=== PATIENT | female | born 1935 | race Caucasian/White ===

== ENCOUNTER 2022-01-16 19:31 | Emergency (ER) | payer OTHER, SELFPAY ==
[2022-01-16] VITALS (18 sets, daily range): BP systolic 135–239; BP diastolic 91–140; PULSE 87–101; RESP 12–19; TEMP 35.8; O2SAT 91–99; BMI 24.4
--- NOTE | 2022-01-16 19:45 | CRLHL7_ITS ---
For Patients: As a result of the Century Cures Act, medical imaging exams and procedure reports are released immediately into your electronic medical record. You may view this report before your referring provider. If you have questions, please contact your health care provider. DATE: 01/16/2022. CLINICAL HISTORY: Slurred speech. TECHNIQUE: Standard helical CT image acquisition through the head and neck was performed after intravenous contrast bolus enhancement. Multiplanar reconstructed images were performed and interpreted. COMPARISON: None available. FINDINGS: The origins of the great vessels from the aortic arch are patent. The origins of the right and left vertebral arteries are patent. The common carotid arteries are patent. Mild (<50%) atherosclerotic stenoses of the bilateral proximal ICAs by NASCET criteria. The more distal cervical segments of the internal carotid arteries are patent. The cervical segments of the vertebral arteries are patent. No intracranial proximal large vessel occlusion. Intracranial atherosclerotic disease with mild to moderate stenoses of the intracranial vertebral arteries and mild stenosis of the supraclinoid left ICA. No evidence of cerebral aneurysm or findings to suggest an arteriovenous shunting lesion. IMPRESSION: 1. No intracranial proximal large vessel occlusion. 2. Atherosclerotic disease involving the anterior and posterior circulation, as above. 3. Mild (<50%) atherosclerotic stenoses of the bilateral proximal ICAs by NASCET criteria. Please note that all CT scans at this facility use dose modulation, iterative reconstruction, and/or weight-based dosing when appropriate to reduce radiation dose to as low as reasonably achievable. Dictated by Dale Jurado MD @ 01/17/2022 7:27:13 PM (Electronically Signed)
--- NOTE | 2022-01-16 19:45 | CRLHL7_ITS ---
For Patients: As a result of the Century Cures Act, medical imaging exams and procedure reports are released immediately into your electronic medical record. You may view this report before your referring provider. If you have questions, please contact your health care provider. INDICATION: Slurred speech. TECHNIQUE: CT of the head without contrast. Coronal and sagittal reformats are included. COMPARISON: None. FINDINGS: No CT evidence of acute cortical infarct. No loss of santana white matter differentiation. No hyperdense vessels to suggest intracranial thrombus. No acute intracranial hemorrhage. No mass effect or midline shift. No hydrocephalus or extra-axial collections. Patchy and hypoattenuation throughout the supratentorial white matter, typical for microvascular ischemic change. Moderate generalized parenchymal volume loss. Thick vascular calcifications carotid siphons, left carotid terminus/proximal MCA intradural vertebral arteries. No acute osseous abnormalities. Bilateral partial mastoid effusions. Small left maxillary sinus retention cyst. Normal soft tissues. IMPRESSION: IMPRESSION:1. No CT evidence of acute cortical infarct. No acute intracranial hemorrhage. No other acute intracranial findings. Please note that all CT scans at this facility use dose modulation, iterative reconstruction, and/or weight-based dosing when appropriate to reduce radiation dose to as low as reasonably achievable. Dictated by Thom Barnard MD @ 01/16/2022 8:06:10 PM (Electronically Signed)
--- NOTE | 2022-01-16 19:50 | ED_ITS ---
HPI - General Adult General Chief complaint: Altered Mental Status <Maylin Moon MD - Last Filed: 01/16/22 21:53> Stated complaint: headache, nausea, vomiting, htn <Maylin Moon MD - Last Filed: 01/16/22 21:53> Time Seen by Provider: 01/16/22 19:45 <Maylin Moon MD - Last Filed: 01/16/22 21:53> Source: patient and family <Maylin Moon MD - Last Filed: 01/16/22 21:53> Mode of arrival: EMS <Maylin Moon MD - Last Filed: 01/16/22 21:53> Limitations: other (Hearing impaired) <Maylin Moon MD - Last Filed: 01/16/22 21:53> History of Present Illness HPI narrative: 86-year-old female coming in today for headache that started at 4:00 p.m. and recurrent vomiting. She has vomited so much that she is now only dry heaving. Her daughter states she has vomited every 5 minutes nonstop. No diarrhea that she is aware of. According the EMS she was mentating normally however when she arrived in the ER she started having slurred speech and then jumbled speech with word salad. Daughter is very concerned because this is not her mother's baseline. States that mother has no difficulty with speech. Patient and daughter both denies recent illness. Patient denies any changes in her hearing or her vision. She does not have her hearing aids in right now so it is difficult to communicate with her but she does hear if you yell loud enough. Past medical history significant for bilateral hearing loss, depression, osteoporosis, COPD, vitamin-D deficiency, nephrectomy 1968. She is not on any blood thinners. She takes escitalopram, albuterol inhaler, vaginal estradiol, Fosamax, Spiriva. <Maylin Moon MD - Last Filed: 01/16/22 21:53> Related Data Home medications: Home Medications Medication Instructions Recorded Confirmed albuterol sulfate 90 mcg/actuation inhalation 01/16/22 aerosol inhaler alendronate 70 mg tablet mg PO 01/16/22 escitalopram oxalate 20 mg tablet mg 01/16/22 <Maylin Moon MD - Last Filed: 01/16/22 21:53> Allergies/adverse reactions: Allergies Allergy/AdvReac Type Severity Reaction Status Date / Time Fish Containing Products Allergy Verified 01/16/22 19:51 Sulfa (Sulfonamide Allergy Verified 01/16/22 19:51 Antibiotics) codine Allergy Uncoded 01/16/22 19:51 <Maylin Moon MD - Last Filed: 01/16/22 21:53> Review of Systems Status of ROS: Reports: 10 or more systems reviewed and unremarkable except as noted in History and below <Maylin Moon MD - Last Filed: 01/16/22 21:53> [facility] Medical History: Medical History (Updated 01/16/22 @ 22:17 by Wander Montiel MD) COPD (chronic obstructive pulmonary disease) <Maylin Moon MD - Last Filed: 01/16/22 21:53> Surgical History: Surgical History (Updated 01/16/22 @ 19:53 by Sheyla Ron RN) History of appendectomy History of nephrectomy <Maylin Moon MD - Last Filed: 01/16/22 21:53> Social History: Social History Smoking Status: Former smoker What tobacco products do you use: cigarettes Smoking quit date/years: >15 years ago Do you use any of these nicotine containing products: None Second hand tobacco smoke exposure: No How often do you have a drink containing alcohol: never How often do you have six or more drinks on one occasion: Never AUDIT-C Alcohol total score: 0 Non-prescribed substance use: denies use service: No <Maylin Moon MD - Last Filed: 01/16/22 21:53> Exam Narrative: Exam Narrative: Elevated blood pressure. Well-nourished well-developed patient in no acute distress. Awake. She cannot tell me the month or year. Daughter states that her birthday is tomorrow said she has been very aware of that so she should no both of those things. At 1st she answers questions appropriately but 2 minutes into the interview lawrence cruz's speech becomes acutely slurred and she has jumbled speech and word salad. She is very hard of hearing but follows commands and is cooperative. HEENT: Normocephalic atraumatic. The left pupil is 1-2 mm smaller than the right. Extraocular muscles are intact. Conjunctivae are moist without any icterus noted. Moist mucous membranes. Posterior pharynx is normal. Neck is soft without any lymphadenopathy or thyromegaly. No masses are appreciated. Cardiovascular: Heart is regular rate and rhythm S1 and S2 are present without any murmurs. Lungs: Decreased breath sounds bilaterally, no wheezes rhonchi or rales are appreciated. Patient takes deep breaths without any discomfort. Abdomen: Soft and nontender nondistended with normal bowel sounds. No guarding or rebound. No masses or organomegaly appreciated. Extremities: Bilateral lower extremities are without edema. Normal DP and PT pulses. Skin: Well perfused without any obvious rashes. Strength is 5/5 of the upper and lower extremities. Reflexes are 2+ and symmetric at the knees. Cranial nerves 3-12 are normal. [id number] is accurate but slow. There is no nystagmus either horizontally or vertically. <Maylin Moon MD - Last Filed: 01/16/22 21:53> Const: Vital Signs, click to edit/add: Vital Signs - 24 hr 01/16/22 19:36 Temperature 96.4 F L Pulse Rate [Right Pulse Oximeter] 87 Respiratory Rate 18 Blood Pressure [Le ft Upper Arm] 239/135 H Pulse Oximetry 98 Oxygen Delivery Me thod Room Air <Maylin Moon MD - Last Filed: 01/16/22 21:53> Vital Signs, click to edit/add: Vital Signs - 24 hr 01/16/22 19:36 Temperature 96.4 F L Pulse Rate [Right Pulse Oximeter] 87 Respiratory Rate 18 Blood Pressure [Le ft Upper Arm] 239/135 H Pulse Oximetry 98 Oxygen Delivery Me thod Room Air <Wander Montiel MD - Last Filed: 01/16/22 22:17> Course Course Hospital Course: Head CT unremarkable, CTA showing stenosis of multiple vessels but no occlusion. Speak to Dr. Wellington, neurology at a line now who recommended MRI and admission. Unfortunately we [facility] [place], [facility], [facility], [facility]-there are no beds available anywhere, including here. Therefore patient will be kept in the ER for observation at this time and pending her night we will get her situated for an outpatient workup including MRI and echocardiogram. Given her headache we did go ahead and treated with IV morphine and given her significantly elevated blood pressure we did treat with IV hydralazine. We also did dose of aspirin and loading dose of Plavix. Went to re-examine the patient and her daughter stated that she had another episode of jumbled speech that lasted a couple of minutes and then resolved. I did speak to Dr. Wellington again to tell her about this episode, she stated that given that the episode comes and goes that we cannot get an MRI at this time to confirm, she would does not recommend lytics. Does recommend we check lipids, A1c. And set her up for an outpatient MRI and echocardiogram. <Maylin Moon MD - Last Filed: 01/16/22 21:53> Reevaluation(s) Reevaluation #1: Patient accepted in sign-out from Dr. Moon. Briefly, 86-year-old female with history of hypertension who initially presented with headache, nausea, and vomiting starting about 4:00 p.m.. Subsequently while in the emergency department at approximately 745, patient developed slurred speech which progressed to finding and jumbled speech. This lasted approximately 20 minutes and resolved. No other focal neurologic deficits during this time. She is found to be significantly hypertensive, hydralazine ordered and patient was given morphine IV to help with her headache as well. Approximately 9:30 p.m., daughter reported the patient had another episode of slurred and garbled speech which is now resolved <Wander Montiel MD - Last Filed: 01/16/22 22:17> Time: 21:39 <Wander Montiel MD - Last Filed: 01/16/22 22:17> Reevaluation #2: Patient accepted to [place] by Dr. Martinez. <Wander Montiel MD - Last Filed: 01/16/22 22:17> Time: 22:16 <Wander Montiel MD - Last Filed: 01/16/22 22:17> Vital Signs Vital signs: Initial Vital Signs Temperature 96.4 F L 01/16/22 19:36 Temperature Source Temporal Artery Scan 01/16/22 19:36 Pulse Rate 87 01/16/22 19:36 Pulse Rhythm 01/16/22 19:36 Pulse Strength 3+ Normal 01/16/22 19:36 Respiratory Rate 18 01/16/22 19:36 Blood Pressure 239/135 H 01/16/22 19:36 Blood Pressure Mean 169 01/16/22 19:36 Blood Pressure Position Supine 01/16/22 19:36 Pulse Oximetry 98 01/16/22 19:36 Oxygen Delivery Method 01/16/22 19:36 Vital Signs Temperature 96.4 F L 01/16/22 19:36 Pulse Rate 87 01/16/22 19:36 Respiratory Rate 18 01/16/22 19:36 Blood Pressure 239/135 H 01/16/22 19:36 Pulse Oximetry 98 01/16/22 19:36 Oxygen Delivery Method 01/16/22 19:36 Temperature 96.4 F L 01/16/22 19:36 Pulse Rate 87 01/16/22 19:36 Respiratory Rate 18 01/16/22 19:36 Blood Pressure 239/135 H 01/16/22 19:36 Pulse Oximetry 98 01/16/22 19:36 Oxygen Delivery Method 01/16/22 19:36 <Maylin Moon MD - Last Filed: 01/16/22 21:53> Initial Vital Signs Temperature 96.4 F L 01/16/22 19:36 Temperature Source Temporal Artery Scan 01/16/22 19:36 Pulse Rate 87 01/16/22 19:36 Pulse Rhythm 01/16/22 19:36 Pulse Strength 3+ Normal 01/16/22 19:36 Respiratory Rate 18 01/16/22 19:36 Blood Pressure 239/135 H 01/16/22 19:36 Blood Pressure Mean 169 01/16/22 19:36 Blood Pressure Position Supine 01/16/22 19:36 Pulse Oximetry 98 01/16/22 19:36 Oxygen Delivery Method 01/16/22 19:36 Vital Signs Temperature 96.4 F L 01/16/22 19:36 Pulse Rate 87 01/16/22 19:36 Respiratory Rate 18 01/16/22 19:36 Blood Pressure 239/135 H 01/16/22 19:36 Pulse Oximetry 98 01/16/22 19:36 Oxygen Delivery Method 01/16/22 19:36 Temperature 96.4 F L 01/16/22 19:36 Pulse Rate 87 01/16/22 19:36 Respiratory Rate 18 01/16/22 19:36 Blood Pressure 239/135 H 01/16/22 19:36 Pulse Oximetry 98 01/16/22 19:36 Oxygen Delivery Method 01/16/22 19:36 <Wander Montiel MD - Last Filed: 01/16/22 22:17> Medical Decision Making MDM Narrative Medical decision making narrative: 86-year-old female with a headache, TIA, elevated blood pressure. Care w ill be transferred to the oncoming ER physician. <Maylin Moon MD - Last Filed: 01/16/22 21:53> Medical Records Medical records reviewed: Yes I reviewed the patient's medical records <Maylin Moon MD - Last Filed: 01/16/22 21:53> Lab Data Lab results reviewed: Yes I reviewed the patient's lab results <Maylin Moon MD - Last Filed: 01/16/22 21:53> Labs: Lab Results 01/16/22 01/16/22 Range/Units 19:45 19:45 WBC 9.15 (4.50-11.00) K/uL RBC 4.67 (4.00-5.20) m/uL Hgb 13.7 (12.0-16.0) gm/dL Hct 42.2 (33.0-51.0) % MCV 90 (80-100) fL MCH 29 (26-34) pg MCHC 33 (32-36) gm/dL RDW Coeff of Lisbet 13.2 (11.5-15.5) % Plt Count 458 H (140-440) K/uL Neut % (Auto) 72.9 H (42.0-72.0) % Lymph % (Auto) 16.6 L (20-44) % [place] % (Auto) 8.4 (0.0-11.0) % Eos % (Auto) 1.6 (0.0-7.0) % Baso % (Auto) 0.4 (0.0-3.0) % Neut # (Auto) 6.70 (1.7-7.0) K/uL Lymph # (Auto) 1.50 (0.90-2.90) K/uL [place] # (Auto) 0.80 (0.00-0.90) K/UL Eos # (Auto) 0.15 (0.00-0.50) K/uL Baso # (Auto) 0.04 (0.00-0.30) K/uL Abs Immat Gran (auto) 0.01 (0.00-0.30) K/uL Sodium 136 (135-149) mmol/L Potassium 4.1 (3.6-5.1) mmol/L Chloride 103 (96-114) mmol/L Carbon Dioxide 23 (20-32) mmol/L BUN 20 (7-30) mg/dL Creatinine 0.9 (0.5-1.5) mg/dL Estimated Creat Clear 35.52 Estimated GFR 63 ml/min Glucose 122 H (60-115) mg/dL Calcium 8.9 (8.4-10.6) mg/dL Total Bilirubin 1.1 (0.1-1.5) mg/dL Direct Bilirubin 0.2 (0.0-0.5) mg/dL AST 26 (12-35) U/L ALT 20 (4-35) U/L Alkaline Phosphatase 65 (40-150) U/L C-Reactive Protein < 0.5 L (0.5-1.0) mg/dL Total Protein 7.1 (6.0-8.3) g/dL Albumin 4.2 (3.3-5.0) g/dL Ethyl Alcohol < 0.01 L (0.01-0.03) % <Maylin Moon MD - Last Filed: 01/16/22 21:53> Lab Results 01/16/22 01/16/22 Range/Units 19:45 19:45 WBC 9.15 (4.50-11.00) K/uL RBC 4.67 (4.00-5.20) m/uL Hgb 13.7 (12.0-16.0) gm/dL Hct 42.2 (33.0-51.0) % MCV 90 (80-100) fL MCH 29 (26-34) pg MCHC 33 (32-36) gm/dL RDW Coeff of Lisbet 13.2 (11.5-15.5) % Plt Count 458 H (140-440) K/uL Neut % (Auto) 72.9 H (42.0-72.0) % Lymph % (Auto) 16.6 L (20-44) % [place] % (Auto) 8.4 (0.0-11.0) % Eos % (Auto) 1.6 (0.0-7.0) % Baso % (Auto) 0.4 (0.0-3.0) % Neut # (Auto) 6.70 (1.7-7.0) K/uL Lymph # (Auto) 1.50 (0.90-2.90) K/uL [place] # (Auto) 0.80 (0.00-0.90) K/UL Eos # (Auto) 0.15 (0.00-0.50) K/uL Baso # (Auto) 0.04 (0.00-0.30) K/uL Abs Immat Gran (auto) 0.01 (0.00-0.30) K/uL Sodium 136 (135-149) mmol/L Potassium 4.1 (3.6-5.1) mmol/L Chloride 103 (96-114) mmol/L Carbon Dioxide 23 (20-32) mmol/L BUN 20 (7-30) mg/dL Creatinine 0.9 (0.5-1.5) mg/dL Estimated Creat Clear 35.52 Estimated GFR 63 ml/min Glucose 122 H (60-115) mg/dL Calcium 8.9 (8.4-10.6) mg/dL Total Bilirubin 1.1 (0.1-1.5) mg/dL Direct Bilirubin 0.2 (0.0-0.5) mg/dL AST 26 (12-35) U/L ALT 20 (4-35) U/L Alkaline Phosphatase 65 (40-150) U/L C-Reactive Protein < 0.5 L (0.5-1.0) mg/dL Total Protein 7.1 (6.0-8.3) g/dL Albumin 4.2 (3.3-5.0) g/dL Ethyl Alcohol < 0.01 L (0.01-0.03) % <Wander Monteil MD - Last Filed: 01/16/22 22:17> Imaging Data CT scan - head: Attestation: I have reviewed the pertinent imaging results. <Maylin Moon MD - Last Filed: 01/16/22 21:53> Radiologist's impression: FINDINGS: No CT evidence of acute cortical infarct. No loss of santana white matter differentiation. No hyperdense vessels to suggest intracranial thrombus. No acute intracranial hemorrhage. No mass effect or midline shift. No hydrocephalus or extra-axial collections. Patchy and hypoattenuation throughout the supratentorial white matter, typical for microvascular ischemic change. Moderate generalized parenchymal volume loss. Thick vascular calcifications carotid siphons, left carotid terminus/proximal MCA intradural vertebral arteries. No acute osseous abnormalities. Bilateral partial mastoid effusions. Small left maxillary sinus retention cyst. Normal soft tissues. IMPRESSION: IMPRESSION:1. No CT evidence of acute cortical infarct. No acute intracranial hemorrhage. No other acute intracranial findings. <Maylin Moon MD - Last Filed: 01/16/22 21:53> Head and neck CTA: Attestation: I have reviewed the pertinent imaging results. <Maylin Moon MD - Last Filed: 01/16/22 21:53> Radiologist's impression: FINDINGS: CTA head: No emergent large vessel occlusion. Moderate stenosis of the left carotid terminus. Moderate to high-grade stenosis of both intradural vertebral arteries inferiorly. [place] proximal anterior cerebral artery trunk. CTA neck: Significant ulceration of the left ICA origin secondary to a combination of soft and calcific plaque. High moderate stenosis of the lumen by NASCET criteria. Moderate stenosis of the right internal carotid artery just beyond the origin from calcific and soft plaque as well. <Maylin Moon MD - Last Filed: 01/16/22 21:53> ECG Data Attestation: I personally reviewed and interpreted this ECG as follows: (Sinus rhythm with arrhythmia, pulse 78) <Maylin Moon MD - Last Filed: 01/16/22 21:53> Discharge Plan Discharge Clinical Impression: Transient ischemic attack, Hypertensive urgency <Maylin Moon MD - Last Filed: 01/16/22 21:53> Prescriptions: No Action alendronate 70 mg tablet PO Label Comments: TAKE 1 TABLET BY MOUTH EVERY 7 DAYS albuterol sulfate 90 mcg/actuation HFA aerosol inhaler INHALATION Label Comments: inhaler 2 puffs by mouth every 4 hours as needed escitalopram oxalate 20 mg tablet Label Comments: TAKE 1 TABLET BY MOUTH DAILY <Maylin Moon MD - Last Filed: 01/16/22 21:53> Follow Up/Referrals: Provider,Not a Local [Primary Care Provider] - <Maylin Moon MD - Last Filed: 01/16/22 21:53>
[2022-01-16 20:06] LABS: Basophils Absolute Auto 0.04 K/uL (0.00-0.30); Basophils Percent Auto 0.4 % (0.0-3.0); Eosinophils Absolute Auto 0.15 K/uL (0.00-0.50); Eosinophils Percent Auto 1.6 % (0.0-7.0); Hematocrit 42.2 % (33.0-51.0); Hemoglobin* 13.7 gm/dL (12.0-16.0); Immature Granulocytes Abs Auto 0.01 K/uL (0.00-0.30); Lymphocytes Percent Auto 16.6 % (20-44); Mean Corpuscular HGB Conc 33 gm/dL (32-36); Mean Corpuscular Hemoglobin 29 pg (26-34); Mean Corpuscular Volume 90 fL (80-100); Monocytes Percent Auto 8.4 % (0.0-11.0); Neutrophils Percent Auto 72.9 % (42.0-72.0); Platelet Count* 458 K/uL (140-440); RDW Coefficient of Variation % 13.2 % (11.5-15.5); Red Blood Count 4.67 m/uL (4.00-5.20); White Blood Count* 9.15 K/uL (4.50-11.00)
[2022-01-16 20:15] LABS: Slide Review Reflex No
[2022-01-16 20:21] LABS: Chloride* 103 mmol/L (96-114)
[2022-01-16 20:22] LABS: Albumin* 4.2 g/dL (3.3-5.0); Sodium* 136 mmol/L (135-149)
[2022-01-16 20:23] LABS: Potassium* 4.1 mmol/L (3.6-5.1)
[2022-01-16 20:25] LABS: Creatinine* 0.9 mg/dL (0.5-1.5); Est. Creatinine Clearance* 35.52; Estimated Glomerular Filt Rate 63 ml/min
[2022-01-16 20:26] LABS: Alanine Aminotransferase* 20 U/L (4-35); Alkaline Phosphatase* 65 U/L (40-150); Aspartate Amino Transferase* 26 U/L (12-35); Bilirubin Direct* 0.2 mg/dL (0.0-0.5); Bilirubin Total* 1.1 mg/dL (0.1-1.5); Blood Urea Nitrogen* 20 mg/dL (7-30); Calcium* 8.9 mg/dL (8.4-10.6); Carbon Dioxide* 23 mmol/L (20-32); Glucose* 122 mg/dL (60-115); Total Protein* 7.1 g/dL (6.0-8.3)
[2022-01-16 20:29] LABS: C Reactive Protein* < 0.5 mg/dL (0.5-1.0); Ethanol* < 0.01 % (0.01-0.03)
[2022-01-16] MEDS: ASPIRIN 81 MG TAB.CHEW 324 MG PO (21:58)
[2022-01-16] MEDS: CLOPIDOGREL 300 MG TABLET PO (21:59)
[2022-01-16] MEDS: MORPHINE 2 MG/ML inj IVP (22:06)
[2022-01-16] MEDS: HYDRALAZINE HCL 20 MG/ML inj 10 MG IVP (22:09)
[2022-01-16 22:28] LABS: Cholesterol* 246 mg/dL (90-199); HDL Cholesterol* 57 mg/dL (>=50); LDL Cholesterol Calculated 142 mg/dL (<100); Triglycerides* 236 mg/dL (40-149)
[2022-01-16 22:30] LABS: Hemoglobin A1C* 5.93 % (0-5.6)
--- NOTE | 2022-01-16 23:05 | ED.NURSE ---
report to Sindy Rubio at [facility]. pt accepted to room 2202.
--- NOTE | 2022-01-17 | ED.NURSE ---
report to [facility]s crew, pt transported.
[2022-01-17] MEDS: ONDANSETRON 2 MG/ML inj 4 MG IVP (00:05)
--- NOTE | 2022-01-17 00:29 | ED.NURSE ---
see neuro paper charting.
== END 2022-01-17 00:05 | disposition home or self-care (01) ==
PROVIDERS: Family Medicine; Emergency Provider Family Medicine
DX: G45.9 Transient cerebral ischemic attack, unspecified (principal); I16.0 Hypertensive urgency
CPT/HCPCS: 36415; 70450; 70496; 70498; 80048; 80061; 80076; 82077; 83036; 85025; 86140; 93005; 96374; 96375; 99285; 99291; A9270; J0360; J2270; J2405; Q9967

== ENCOUNTER 2022-05-12 03:06 | Emergency (ER) | payer OTHER, SELFPAY ==
[2022-05-12] VITALS (13 sets, daily range): BP systolic 180–215; BP diastolic 104–133; PULSE 72–87; RESP 18; TEMP 36.7; O2SAT 97–99; BMI 23.2
--- NOTE | 2022-05-12 03:24 | ED_ITS ---
HPI - Altered Mental Status General Chief Complaint: Headache/Migraine Stated Complaint: Stroke,Blood pressure 219/127 Time Seen by Provider: 05/12/22 03:16 Source: patient and family Mode of arrival: ambulatory History of Present Illness HPI narrative: 87-year-old female with prior workup for TIA back in January, just a few months ago presents with headache. Patient states the headache started at 11:00 p.m. which is about 4 hours prior to arrival. She has a significant history of hypertension. Denies any missed doses of her medication. Because of the headache, she checked her blood pressure noted that it was elevated. There were no neurological changes whatsoever. Family reports that she has complained of her usual leg pain back pain in the last few days which is not out of character for her. She has not exhibited any neurological changes. She was a little more quiet than usual at [facility] last night but is otherwise been eating and drinking normally. There is no vomiting, no diarrhea, no falls. Extensively reviewed t he notes from January. Ultimately, she was transferred to [place] because of bed availability at our facility. It did show some chronic ischemic changes but nothing acute. Moderate volume loss and typical changes that would be expected for her age. EF was hyperdynamic with an EF of over 75%, no obvious valvular disease. She does not have a history of arrhythmia. She is anticoagulated on Plavix she reports treatment for high cholesterol, anxiety. She does have elevated blood pressures at times, is not on antihypertensive therapy. She has been feeling well otherwise and has no recent illness or other acute concerns today. She did try taking some Tylenol for the headache with some mild improvement. Past medical history notable for anxiety, COPD, prior TIA. Medications reviewed and accurate as listed in EMR, compared with [facility] records. Socially she is a current nonsmoker, lives with 1 of her daughters who is not the daughter that accompanies her today. No recent pertinent travel ROS is notable for the headache as stated above, patient otherwise denies times 12 systems. Daughter denies any other systemic symptoms except as described above. And specifically no neurological changes. Related Data Home Medications Medication Instructions Recorded Confirmed albuterol sulfate 90 mcg/actuation 2 puff inhalation Q4H PRN 01/16/22 05/12/22 aerosol inhaler escitalopram oxalate 20 mg tablet 20 mg PO DAILY 01/16/22 05/12/22 albuterol sulfate 2.5 mg/3 mL 2.5 mg inhalation Q4H PRN 01/27/22 05/12/22 (0.083 %) solution for nebulization aspirin 81 mg chewable tablet 81 mg PO QDAY 01/27/22 05/12/22 cholecalciferol (vitamin D3) 25 1,000 unit PO DAILY 01/27/22 05/12/22 mcg (1,000 unit) tablet tiotropium bromide 2.5 2 puff inhalation DAILY 01/27/22 05/12/22 mcg/actuation mist for inhalation ondansetron 4 mg disintegrating 4 mg PO Q8H PRN 05/12/22 05/12/22 tablet Previous Rx's Medication Instructions Recorded lorazepam 0.5 mg tablet 0.25 - 0.5 mg PO QDAY PRN anxiety 01/27/22 #15 tabs alendronate 70 mg tablet 70 mg PO QWEEK #12 tabs 02/24/22 clopidogrel 75 mg tablet (Plavix) 75 mg PO QDAY #90 tabs 02/24/22 rosuvastatin 5 mg tablet 5 mg PO QDAY #90 tabs 02/24/22 prednisone 20 mg tablet 40 mg PO QDAY #8 tabs 03/15/22 amlodipine 5 mg tablet 5 mg PO DAILY PRN hypertension #30 05/12/22 tabs Allergies Allergy/AdvReac Type Severity Reaction Status Date / Time codeine Allergy Intermediate Syncope Verified 05/12/22 03:32 bupropion [From Wellbutrin] Allergy Mild Dizziness Verified 05/12/22 03:32 ciprofloxacin Allergy Mild Rash Verified 05/12/22 03:32 Fish Containing Products Allergy Mild Hives Verified 05/12/22 03:32 umeclidinium Allergy Mild Rash Verified 05/12/22 03:32 [From Anoro Ellipta] vilanterol Allergy Mild Rash Verified 05/12/22 03:32 [From Anoro Ellipta] [facility] Medical History (Updated 05/12/22 @ 03:42 by Alvaro Summers RN) Anxiety Carotid arterial disease COPD (chronic obstructive pulmonary disease) Depression Health care directive on file Hearing loss History of vitamin D deficiency HTN (hypertension) On clopidogrel therapy Osteoporosis Screening for breast cancer TIA (transient ischemic attack) Vertebral artery stenosis Surgical History History of appendectomy History of arthroscopic knee surgery History of carpal tunnel surgery of left wrist History of nephrectomy History of ptosis repair (02/2018) History of tonsillectomy and adenoidectomy Status post total abdominal hysterectomy Family History Mother Alzheimers disease Social History Narrative: Former smoker- age [age] x 1ppd Smoking Status: Never smoker Do you use any of these nicotine containing products: None Second hand tobacco smoke exposure: No How often do you have a drink containing alcohol: never How often do you have six or more drinks on one occasion: Never AUDIT-C Alcohol total score: 0 Non-prescribed substance use: denies use service: No Exam Const: Vital Signs, click to edit/add: Vital Signs - 24 hr 05/12/22 03:20 05/12/22 03:24 05/12/22 03:23 Temperature 98.0 F Pulse Rate 78 Pulse Rate [Right Pulse Oximeter] 78 Respiratory Rate 18 Blood Pressure Blood Pressure [Ri ght Upper Arm] 190/130 H Pulse Oximetry 99 99 97 Oxygen Delivery Me thod Room Air 05/12/22 03:27 05/12/22 03:30 05/12/22 03:32 Temperature Pulse Rate 81 82 80 Pulse Rate [Right Pulse Oximeter] Respiratory Rate Blood Pressure 215/119 H 211/131 H Blood Pressure [Ri ght Upper Arm] Pulse Oximetry 97 97 97 Oxygen Delivery Me thod 05/12/22 03:33 05/12/22 03:45 05/12/22 03:47 Temperature Pulse Rate 78 81 79 Pulse Rate [Right Pulse Oximeter] Respiratory Rate Blood Pressure 196/133 H Blood Pressure [Ri ght Upper Arm] Pulse Oximetry 97 97 97 Oxygen Delivery Me thod 05/12/22 04:13 05/12/22 04:17 05/12/22 04:31 Temperature Pulse Rate 84 87 85 Pulse Rate [Right Pulse Oximeter] Respiratory Rate 18 Blood Pressure 197/122 H 180/118 H 187/111 H Blood Pressure [Ri ght Upper Arm] Pulse Oximetry 97 98 98 Oxygen Delivery Me thod Documenting provider has reviewed patient's vital signs: yes Common normals: no apparent distress and oriented x3 General appearance: well kempt Other: Hard of hearing with some mild cognitive impairment evident HENMT: Common normals: normocephalic Head and scalp: normocephalic Face and sinus: normal facial exam Mouth: oral and palatal mucosa normal Throat: posterior oropharynx normal Eye: Common normals: PERRL, EOMs intact bilaterally, conjunctivae normal and no scleral icterus Conjunctiva: conjunctiva(e) normal Pupil: PERRL Neck & C-Spine: Common normals: full ROM, no lymphadenopathy and no meningeal signs Resp: Common normals: normal respiratory effort, no use of accessory muscles and clear to auscultation bilaterally Effort & inspection: able to speak in complete sentences Auscultation: clear to auscultation bilaterally Cardio: Common normals: regular rate, regular rhythm, S1 normal heart sound, S2 normal heart sound, no murmurs and peripheral pulses 2+ throughout Rate: regular rate Rhythm: regular rhythm Heart sounds: S1 normal and S2 normal Peripheral pulses: pulses 2+ throughout GI: Common normals: Normal to inspection, nondistended, normoactive bowel sounds present, soft to palpation and no hepatosplenomegaly Palpation: soft and no hepatosplenomegaly Back & Pelvis: Other: Moderate kyphosis, not unexpected for age. No point tenderness Extremity: Common normals: normal capillary refill and no pedal edema Neuro: Common normals: oriented x3 and CN's II-XII intact bilaterally Meningeal signs: no meningeal signs Coordination/balance: does not sway with eyes open Speech: speech normal Gait (neuro): normal gait Motor exam: strength 5/5 throughout, no pronator drift, no tremor noted and no movement abnormalities noted Coordination: does not sway with eyes open Psych: Appearance: well kempt Attitude: engaged Insight: fair Judgeme nt: fair Other: Mild memory and cognitive impairment noted. She is not able to list her medications for me but states that she does set them up. Skin: Common normals: no rashes or lesions noted Narrative: No signs of trauma or bruising General skin exam: no rashes or lesions noted Course Vital Signs Vital signs: Initial Vital Signs Temperature 98.0 F 05/12/22 03:20 Temperature Source Temporal Artery Scan 05/12/22 03:20 Pulse Rate 78 05/12/22 03:20 Pulse Rhythm 05/12/22 03:20 Pulse Strength 3+ Normal 05/12/22 03:20 Respiratory Rate 18 05/12/22 03:20 Blood Pressure 190/130 H 05/12/22 03:20 Blood Pressure Mean 150 05/12/22 03:20 Blood Pressure Position Sitting 05/12/22 03:20 Pulse Oximetry 99 05/12/22 03:20 Oxygen Delivery Method 05/12/22 03:20 Vital Signs Temperature 98.0 F 05/12/22 03:20 Pulse Rate 78 05/12/22 03:20 Respiratory Rate 18 05/12/22 03:20 Blood Pressure 190/130 H 05/12/22 03:20 Pulse Oximetry 99 05/12/22 03:20 Oxygen Delivery Method 05/12/22 03:20 Temperature 98.0 F 05/12/22 03:20 Pulse Rate 85 05/12/22 04:31 Respiratory Rate 18 05/12/22 04:31 Blood Pressure 187/111 H 05/12/22 04:31 Pulse Oximetry 98 05/12/22 04:31 Oxygen Delivery Method 05/12/22 03:20 MDM - Altered Mental Status MDM Narrative Medical decision making narrative: Elevated blood pressures noted, no focal neurological changes. No falls or injury. History of stroke-like symptoms in the past, recommend head CT to exclude intracranial hemorrhage. Is anticoagulated on Plavix. Will treat elevated blood pressure today with amlodipine 5 mg p.o. x1. Patient would likely benefit from p.r.n. antihypertensives at home and ambulatory blood pressure monitoring to determine if she is appropriately well-controlled. Will clinical counselor daughter that unfortunately blood pressures in someone this age do bounce around a lot. It can be difficult to keep the blood pressure in a consistent range. If start her on long-term blood pressure medication, this could potentially lead to more falls, dizziness, hypotension and more problems. She certainly does have some degree of cerebrovascular disease, noted on recent CTA and MRI which as long as she does not have return of any neurological changes while here, will not be repeated. Will discuss that if she complains of similar headache and blood pressures are over 180, would recommend treatment with hydralazine or amlodipine. Would not need ED referral unless there was a neurological change. Basic labs, head CT pending. Repeat evaluation: 4:30 a.m.: I CT findings reviewed with family, lab findings reviewed with family. Minimal elevation in LFTs is likely from new statin use b ut I think the benefit outweighs the risk and these are not out of the range of acceptable. Stressed how she is doing a great job on her statin, Plavix on an every day basis. Discussed the mechanism of hypertensive urgency in the setting of known significant cerebrovascular disease. These spells will happen again unfortunately. Discussed how we would use lytics and or aggressive management if there were major neurological changes in those would warrant ED evaluation. Family is interested in a home management plan for what to do for minor episodes like this, specifically those with headache, hypertension but with no significant neurological changes. I stressed that they will need to continue on her statin, Plavix, other medications but will prescribe a dose of amlodipine to take as needed for these episodes. I stressed that only to improve headache and reduce the risk of a head bleed. We are not trying to get the blood pressure below 180 necessarily. If the patient complains of headache and there are no neurological changes, 1st give Tylenol and checked the blood pressure. If it is elevated above 180 systolic and or 105 diastolic, recheck in a 1/2 hour. If both values are elevated above these goals, give 5 mg of amlodipine. Checked the blood pressure twice daily for the next 2 weeks and follow up with primary care provider. I do not think that she will need long-term hypertension management based on previous values reviewed from her [facility] hospitalization. Stressed that there is not a cut off value that we need her blood pressure to be below with these episodes, the body will regulate this based on vascular need. Reminded that any major neurological changes would warrant a different plan and should be evaluated in the ED. Patient and daughter verbalized understanding and agreement. Repeat neurological exam is similar to initial exam with no significant changes. Blood pressure improving with amlodipine to 180/105 as intended Medical Records Attestation: I reviewed the patient's medical records. Medical records narrative: From January of 2022 including [facility] records Lab Data Attestation: I reviewed the patient's lab results. Labs: Lab Results 05/12/22 05/12/22 05/12/22 Range/Units 03:15 03:15 03:15 WBC 8.32 (4.50-11.00) K/uL RBC 4.77 (4.00-5.20) m/uL Hgb 13.3 (12.0-16.0) gm/dL Hct 41.5 (33.0-51.0) % MCV 87 (80-100) fL MCH 28 (26-34) pg MCHC 32 (32-36) gm/dL RDW Coeff of Lisbet 12.8 (11.5-15.5) % Plt Count 411 (140-440) K/uL Neut % (Auto) 51.9 (42.0-72.0) % Lymph % (Auto) 29.4 (20-44) % Travis % (Auto) 11.3 H (0.0-11.0) % Eos % (Auto) 6.4 (0.0-7.0) % Baso % (Auto) 0.8 (0.0-3.0) % Neut # (Auto) 4.31 (1.7-7.0) K/uL Lymph # (Auto) 2.45 (0.90-2.90) K/uL Travis # (Auto) 0.90 (0.00-0.90) K/UL Eos # (Auto) 0.53 H (0.00-0.50) K/uL Baso # (Auto) 0.07 (0.00-0.30) K/uL Abs Immat Gran (auto) 0.02 (0.00-0.30) K/uL Imm/Tot Granulo (auto) 0.2 % INR 0.86 L (0.91-1.10) Sodium 140 (135-149) mmol/L Potassium 4.0 (3.6-5.1) mmol/L Chloride 108 (96-114) mmol/L Carbon Dioxide 24 (20-32) mmol/L BUN 18 (7-30) mg/dL Creatinine 0.7 (0.5-1.5) mg/dL Estimated Creat Clear 34.87 Estimated GFR 84 ml/min Glucose 112 (60-115) mg/dL Calcium 9.2 (8.4-10.6) mg/dL Total Bilirubin 0.6 (0.1-1.5) mg/dL AST 59 H (12-35) U/L ALT 52 H (4-35) U/L Alkaline Phosphatase 71 (40-150) U/L Troponin I < 0.01 L (0.01-0.04) ng/mL Total Protein 7.0 (6.0-8.3) g/dL Albumin 4.5 (3.3-5.0) g/dL Ethyl Alcohol (0.01-0.03) % POC Troponin I (0.01-0.04) ng/ml 05/12/22 05/12/22 Range/Units 03:15 03:25 WBC (4.50-11.00) K/uL RBC (4.00-5.20) m/uL Hgb (12.0-16.0) gm/dL Hct (33.0-51.0) % MCV (80-100) fL MCH (26-34) pg MCHC (32-36) gm/dL RDW Coeff of Lisbet (11.5-15.5) % Plt Count (140-440) K/uL Neut % (Auto) (42.0-72.0) % Lymph % (Auto) (20-44) % Travis % (Auto) (0.0-11.0) % Eos % (Auto) (0.0-7.0) % Baso % (Auto) (0.0-3.0) % Neut # (Auto) (1.7-7.0) K/uL Lymph # (Auto) (0.90-2.90) K/uL Travis # (Auto) (0.00-0.90) K/UL Eos # (Auto) (0.00-0.50) K/uL Baso # (Auto) (0.00-0.30) K/uL Abs Immat Gran (auto) (0.00-0.30) K/uL Imm/Tot Granulo (auto) % INR (0.91-1.10) Sodium (135-149) mmol/L Potassium (3.6-5.1) mmol/L Chloride (96-114) mmol/L Carbon Dioxide (20-32) mmol/L BUN (7-30) mg/dL Creatinine (0.5-1.5) mg/dL Estimated Creat Clear Estimated GFR ml/min Glucose (60-115) mg/dL Calcium (8.4-10.6) mg/dL Total Bilirubin (0.1-1.5) mg/dL AST (12-35) U/L ALT (4-35) U/L Alkaline Phosphatase (40-150) U/L Troponin I (0.01-0.04) ng/mL Total Protein (6.0-8.3) g/dL Albumin (3.3-5.0) g/dL Ethyl Alcohol < 0.01 L (0.01-0.03) % POC Troponin I 0.00 L (0.01-0.04) ng/ml Imaging Data CT scan - head: Attestation: I have reviewed the pertinent imaging results. My impression: Lots of chronic vascular changes and cerebrovascular disease but no acute bleed Radiologist's impression: MPRESSION: 1. No intracranial hemorrhage or territorial infarction. 2. Mild microangiopathic changes and diffuse parenchymal volume loss. Please note that all CT scans at this facility use dose modulation, iterative reconstruction, and/or weight-based dosing when appropriate to reduce radiation dose to as low as reasonably achievable. Dictated by: Marleny Nobles MD @ 05/12/2022 04:32:25 ECG Data Attestation: I personally reviewed and interpreted this ECG as follows: Prior ECG tracings: available for review Interpretation: Sinus rhythm with a rate of 83, left axis deviation noted. Chronic appearing anterior and lateral changes are consistent with changes noted back in January. There are no signs of acute ischemia. Discharge Plan Discharge Clinical Impression: Hypertensive urgency Condition: Improved Additional Instructions: As the blood vessels in your brain age, they can trigger episodes of markedly elevated blood pressures. The slight partial blockages can cause the brain to get decreased blood flow, sending signals to the rest of the body to increase blood pressure to allow better blood flow. This is actually done on purpose. Fortunately, as we age, are blood pressures will swing very widely and it can be difficult to keep them at a consistent number. Because of this reason, we are not as aggressive with treating elevated blood pressures in the elderly. We know that sometimes there blood pressures will be higher than desired but if we lower them, they were at a much higher risk of falls, dizziness, low blood pressures which can be fatal. There are no signs of a stroke today. She certainly has signs of partially blocked arteries in the brain and general volume loss contributing to memory changes based on the scans performed back in January. I do not recommend that we repeat these. Plavix, cholesterol medications and all other medications as prescribed. These episodes will likely happen again. Would like for you guys to check her blood pressure twice daily at rest and record these for your primary care doctor. I would like for you to follow-up in 1-2 weeks to discuss and re-evaluate. If she has another episode like this where she gets a headache and her blood pressure is over 180, I will give you a prescription for a medication called amlodipine to lower the blood pressure slightly. Remember our goal is only to lower it to safe levels, i.e. under 180. You only need to come back to the emergency department if the high blood pressure is accompanied by neurological changes such as persistently slurred speech, confusion, severe dizziness, difficulty moving part of the body. Activity Level: No Restrictions Discharge Diet: Regular Prescriptions: New amlodipine 5 mg tablet 5 mg PO DAILY PRN (Reason: hypertension) Qty: 30 0RF Rx Instructions: Use for hypertensive urgency-headache with persistently elevated blood pressures above 180 and no neurological changes No Action rosuvastatin 5 mg tablet 5 mg PO QDAY Qty: 90 1RF clopidogrel [Plavix] 75 mg tablet 75 mg PO QDAY Qty: 90 3RF alendronate 70 mg tablet 70 mg PO QWEEK Qty: 12 0RF prednisone 20 mg tablet 40 mg PO QDAY Qty: 8 0RF Rx Instructions: Take 2 tablets day 1 through 3 and then 1 tablet day 4 and 5. tiotropium bromide 2.5 mcg/actuation mist 2 puff inhalation DAILY cholecalciferol (vitamin D3) 25 mcg (1,000 unit) tablet 1,000 unit PO DAILY albuterol sulfate 2.5 mg /3 mL (0.083 %) solution for nebulization 2.5 mg inhalation Q4H PRN lorazepam 0.5 mg tablet 0.25 - 0.5 mg PO QDAY PRN (Reason: anxiety) Qty: 15 0RF Rx Instructions: take 1/2 hour before outing activity aspirin 81 mg tablet,chewable 81 mg PO QDAY ondansetron 4 mg tablet,disintegrating 4 mg PO Q8H PRN Label Comments: dissolve 1 tablet by mouth twice a day As Needed for nausea and vomiting albuterol sulfate 90 mcg/actuation HFA aerosol inhaler 2 puff INHALATION Q4H PRN Label Comments: inhaler 2 puffs by mouth every 4 hours as needed escitalopram oxalate 20 mg tablet 20 mg PO DAILY Label Comments: TAKE 1 TABLET BY MOUTH DAILY Follow Up/Referrals: Cindy Meadows MD [Primary Care Provider] -
[2022-05-12 03:25] LABS: Basophils Absolute Auto 0.07 K/uL (0.00-0.30); Basophils Percent Auto 0.8 % (0.0-3.0); Eosinophils Absolute Auto 0.53 K/uL (0.00-0.50); Eosinophils Percent Auto 6.4 % (0.0-7.0); Hematocrit 41.5 % (33.0-51.0); Hemoglobin* 13.3 gm/dL (12.0-16.0); Immature Granulocytes Abs Auto 0.02 K/uL (0.00-0.30); Immature Granulocytes Pct Auto 0.2 %; Lymphocytes Absolute Auto 2.45 K/uL (0.90-2.90); Lymphocytes Percent Auto 29.4 % (20-44); Mean Corpuscular HGB Conc 32 gm/dL (32-36); Mean Corpuscular Hemoglobin 28 pg (26-34); Mean Corpuscular Volume 87 fL (80-100); Monocytes Percent Auto 11.3 % (0.0-11.0); Neutrophils Absolute Auto 4.31 K/uL (1.7-7.0); Neutrophils Percent Auto 51.9 % (42.0-72.0); Platelet Count* 411 K/uL (140-440); RDW Coefficient of Variation % 12.8 % (11.5-15.5); Red Blood Count 4.77 m/uL (4.00-5.20); White Blood Count* 8.32 K/uL (4.50-11.00)
[2022-05-12 03:27] LABS: Slide Review Reflex No
[2022-05-12 03:39] LABS: Albumin* 4.5 g/dL (3.3-5.0); Chloride* 108 mmol/L (96-114); INR 0.86 (0.91-1.10); Prothrombin Time 12.3 Seconds; Sodium* 140 mmol/L (135-149)
[2022-05-12] MEDS: ASPIRIN 81 MG TAB.CHEW 324 MG PO (03:40)
[2022-05-12 03:42] LABS: Alanine Aminotransferase* 52 U/L (4-35); Alkaline Phosphatase* 71 U/L (40-150); Aspartate Amino Transferase* 59 U/L (12-35); Bilirubin Total* 0.6 mg/dL (0.1-1.5); Blood Urea Nitrogen* 18 mg/dL (7-30); Carbon Dioxide* 24 mmol/L (20-32); Creatinine* 0.7 mg/dL (0.5-1.5); Est. Creatinine Clearance* 34.87; Estimated Glomerular Filt Rate 84 ml/min; Ethanol* < 0.01 % (0.01-0.03); Glucose* 112 mg/dL (60-115)
[2022-05-12 03:43] LABS: Calcium* 9.2 mg/dL (8.4-10.6)
[2022-05-12] MEDS: AMLODIPINE 5 MG TABLET PO (03:44)
--- NOTE | 2022-05-12 03:46 | CRLHL7_ITS ---
For Patients: As a result of the Century Cures Act, medical imaging exams and procedure reports are released immediately into your electronic medical record. You may view this report before your referring provider. If you have questions, please contact your health care provider. CT HEAD DATE: 05/12/2022 CLINICAL HISTORY: Patient with altered mental status, headache. TECHNIQUE: Standard CT scanning of the head was performed. COMPARISON: 01/16/2022. FINDINGS: There is no intracranial hemorrhage. There is no territorial infarction. There are mild microangiopathic changes. There is diffuse parenchymal volume loss. There is no mass effect or midline shift. The calvarium is unremarkable. The orbits are unremarkable. The paranasal sinuses are unremarkable. The mastoid air cells are unremarkable. The soft tissues are unremarkable. IMPRESSION: 1. No intracranial hemorrhage or territorial infarction. 2. Mild microangiopathic changes and diffuse parenchymal volume loss. Please note that all CT scans at this facility use dose modulation, iterative reconstruction, and/or weight-based dosing when appropriate to reduce radiation dose to as low as reasonably achievable. Dictated by: Marleny Nobles MD @ 05/12/2022 04:32:25 (Electronically Signed)
[2022-05-12 03:54] LABS: Troponin I* < 0.01 ng/mL (0.01-0.04)
[2022-05-12] MEDS: ONDANSETRON 2 MG/ML inj 4 MG IVP (04:08)
--- NOTE | 2022-05-12 05:01 | ED.NURSE ---
patient neurological status intact, pt hard of hearing throughout pt visit, pt and family state this is chronic.
== END 2022-05-12 05:07 | disposition home or self-care (01) ==
PROVIDERS: Emergency Provider Family Medicine; PCP Emergency Medicine
DX: I16.0 Hypertensive urgency (principal)
CPT/HCPCS: 36415; 70450; 80053; 81003; 82077; 84484; 85025; 85610; 93005; 94761; 96374; 99283; 99284; A9270; J2405

== ENCOUNTER 2022-05-28 18:16 | Outpatient (CLI) | payer OTHER, SELFPAY ==
[2022-05-28 18:13] LABS: Chloride* 108 mmol/L (96-114)
[2022-05-28 18:14] LABS: Potassium* 4.6 mmol/L (3.6-5.1); Sodium* 140 mmol/L (135-149)
[2022-05-28 18:16] LABS: Cholesterol* 141 mg/dL (90-199); Creatinine* 0.8 mg/dL (0.5-1.5); Estimated Glomerular Filt Rate 72 ml/min
[2022-05-28 18:17] LABS: Blood Urea Nitrogen* 12 mg/dL (7-30); Calcium* 8.9 mg/dL (8.4-10.6); Carbon Dioxide* 27 mmol/L (20-32); Glucose* 98 mg/dL (60-115); HDL Cholesterol* 74 mg/dL (>=50); LDL Cholesterol Calculated 37 mg/dL (<100); Triglycerides* 148 mg/dL (40-149)
== END 2022-05-28 18:17 | disposition home or self-care (01) ==
PROVIDERS: PCP Emergency Medicine; Visit Provider Emergency Medicine
DX: E78.5 Hyperlipidemia, unspecified (principal); M81.0 Age-related osteoporosis without current pathological fracture
CPT/HCPCS: 80048; 80061

== ENCOUNTER 2022-06-03 16:57 | Outpatient (CLI) | payer OTHER, SELFPAY ==
[2022-06-03 21:47] LABS: Albumin* 4.2 g/dL (3.3-5.0)
[2022-06-03 21:49] LABS: Aspartate Amino Transferase* 23 U/L (12-35); Bilirubin Direct* 0.2 mg/dL (0.0-0.5); Bilirubin Total* 0.8 mg/dL (0.1-1.5); Total Protein* 6.5 g/dL (6.0-8.3)
[2022-06-03 21:50] LABS: Alanine Aminotransferase* 20 U/L (4-35); Alkaline Phosphatase* 63 U/L (40-150)
== END 2022-06-03 16:58 | disposition home or self-care (01) ==
PROVIDERS: PCP Emergency Medicine; Visit Provider Emergency Medicine
DX: R74.01 Elevation of levels of liver transaminase levels
CPT/HCPCS: 80076; 84484

== ENCOUNTER 2022-06-16 08:14 | Outpatient (CLI) | payer OTHER, SELFPAY ==
--- NOTE | 2022-06-16 08:30 | CRLHL7_ITS ---
For Patients: As a result of the Century Cures Act, medical imaging exams and procedure reports are released immediately into your electronic medical record. You may view this report before your referring provider. If you have questions, please contact your health care provider. [facility] ??? [facility] MYOCARDIAL PERFUSION SCAN CLINICAL HISTORY: 87-year-old female. Right infrascapular chest pain. Right arm pain. Back pain. Prior smoker. COPD. Hypertension. History of TIA. Carotid arterial disease. Height 5 feet 2 inches, weight 140 pounds. TECHNIQUE: (Resting SPECT and Stress Gated SPECT with wall motion and ejection fraction) Stress: Pharmacologic ??? walking protocol Regadenoson (0.4 mg) (IV) Dose (Stress/Rest): 32.9 mCi/8.18 mCi Tc-99m Sestamibi (IV) Comparison: None FINDINGS: There is good uptake of activity by the left ventricle. No left ventricular enlargement is noted. End-diastolic volume 33 mL. End-systolic volume 12 mL. Mild motion artifact on stress and rest images. There are no significant fixed or reversible defects are identified to indicate infarct or ischemia. Gated images demonstrate a normal left ventricular ejection fraction of 64 percent. No regional wall motion abnormalities are identified. IMPRESSION: 1. No evidence of significant myocardial ischemia or infarction. 2. Normal left ventricular ejection fraction of 64 percent. This study was jointly reviewed by radiology and cardiology. AYE SELF M.D. Diagnostic/Nuclear Medicine Radiologist [employer] [email or web address] Transcribed: 1:08 pm LISA CARREON M.D. [employer] [place]/Dictated by: Aye Self MD @ 06/16/2022 10:51:00 AM (Electronically Signed)
--- NOTE | 2022-06-16 09:48 | P.STN_ITS ---
Stress Test Note Date Time Seen by Provider: : Date Seen: 06/16/22 Date of test: 06/16/22 Providers Referring provider: Cindy Meadows Primary care provider: Cindy Meadows Stress test physician: Maylin Sullivan Stress Test Note Stress test ordered: Lexiscan Indication for test: Back pain radiating to arm Stress test medicine: Lexiscan Results discussion: Resting EKG: Sinus rhythm roughly 90 beats per minute Resting blood pressure: 136/89 Stress test: Patient did a walking Lexiscan. With the injection of the regadenastron she did have significant shortness of breath but was able to maintain on the treadmill. She recovered nicely. There was no arrhythmia noted, no significant EKG changes. Blood pressure at the initiation of recovery was 155/64. Await nuclear medicine images to couple this for a full formal sharita gnostic. Patient had no chest pain during this encounter. Impression: Subjectively negative, objectively negative EKG portion of this Lexiscan. Follow up suggested: Await nuclear images to couple this for a full formal diagnostic. Patient was discharged from my portion of this stress test in stable condition.
[2022-06-16 09:49] VITALS: BP 153/78; PULSE 119; RESP 18
[2022-06-16] MEDS: SODIUM CHLORIDE 0.9 % (FLUSH) 10 ML SYRINGE IVF (10:23)
[2022-06-16] MEDS: REGADENOSON 0.4 MG/5 ML SYRINGE IVP (10:23)
== END 2022-06-16 11:05 | disposition home or self-care (01) ==
LOC: STRESS 08:16
PROVIDERS: PCP Emergency Medicine; Visit Provider Family Medicine
DX: M54.9 Dorsalgia, unspecified (principal); R07.89 Other chest pain; I10 Essential (primary) hypertension
CPT/HCPCS: 78452; 93016; 93017; A9500; J2785

== ENCOUNTER 2023-04-05 13:07 | Outpatient (CLI) | payer OTHER, SELFPAY ==
--- NOTE | 2023-04-05 13:45 | CRLHL7_ITS ---
For Patients: As a result of the 21st Century Cures Act, medical imaging exams and procedure reports are released immediately into your electronic medical record. You may view this report before your referring provider. If you have questions, please contact your health care provider. Indication: Dorsalgia, Possible spinal stenosis Technique: Noncontrast sagittal and axial T1, T2, and sagittal STIR sequences are provided. Comparison: No prior studies available for comparison at this institution. Findings: Normal lumbar lordosis. Degenerative grade 1 anterolisthesis at L5-S1. No spondylolysis or spondylolisthesis. No prevertebral or paraspinal edema. No aggressive osseous lesions. Modic type 1 endplate degenerative changes at L2-3. The conus medullaris is normal in signal and location. Anterior osteophytic spurring at L1-2, L2-3, L3-4, L4-5 and L5-S1. Hemorrhagic cyst in the left kidney. The right kidney is absent. T12-L1: No significant spinal canal stenosis or neural foramen narrowing. L1-2: Disc desiccation and mild disc height loss. Mild disc bulge. No significant spinal canal stenosis or neural foramen narrowing. L2-3: Disc desiccation and mild disc height loss. Circumferential disc bulge with superimposed right intraforaminal disc herniation. Mild spinal canal stenosis. Moderate right neural foramina narrowing. No left neural foramen narrowing. L3-4: Circumferential disc bulge, moderate left and mild right facet arthrosis. Mild ligamentum flavum buckling. Right facet joint effusion. Moderate left and mild right subarticular recess stenosis. Mild neural foramen narrowing bilaterally. L4-5: Circumferential disc bulge and facet arthrosis. Left ligamentum flavum buckling. Mild left subarticular recess stenosis. Mild neural foramen narrowing bilaterally. L5-S1: Grade 1 anterolisthesis. Modic type 1 degenerative changes in the left side. Moderate interspace narrowing. Diffuse uncovering of the disc. Advanced facet arthrosis and left ligamentum flavum buckling. Mild left subarticular zone narrowing contact between ligamentum flavum buckling and traversing left S1 nerve roots without kimberley impingement. Severe neural foramina narrowing with impingement of the exiting L5 nerve roots. Impression : 1. No acute osseous or ligamentous abnormality. Multilevel lumbar spondylosis. Modic type 1 endplate degenerative changes at L2-3 and L5-S1. Grade 1 anterolisthesis at L5-S1 due to advanced facet arthrosis. 2. At L5-S1, contact between traversing left S1 nerve roots and ligamenta flavum buckling without ikmberley nerve root impingement. Severe bilateral neural foramen narrowing with impingement of the exiting L5 nerve roots. 3. At L2-3, mild spinal canal narrowing and moderate right neural foramen narrowing. 4. At L3-4, moderate left and mild right subarticular recess narrowing and mild bilateral neural foramen narrowing. 5. At L4-5, mild left subarticular recess and mild bilateral neural foramen narrowing. Dictated by Russell Petersen MD @ 04/06/2023 9:00:49 AM (Electronically Signed)
== END 2023-04-05 13:08 | disposition home or self-care (01) ==
LOC: MRI 13:14
PROVIDERS: PCP Emergency Medicine; Visit Provider Family Medicine
DX: M54.9 Dorsalgia, unspecified (principal); M51.26 Other intervertebral disc displacement, lumbar region; M51.27 Other intervertebral disc displacement, lumbosacral region
CPT/HCPCS: 72148

== ENCOUNTER 2023-05-05 13:19 | Outpatient (CLI) | payer OTHER, SELFPAY | END 2023-05-05 13:20 | disposition home or self-care (01) | PROVIDERS: PCP Emergency Medicine; Visit Provider Emergency Medicine | DX: M81.0 Age-related osteoporosis without current pathological fracture (principal); E78.2 Mixed hyperlipidemia | CPT/HCPCS: 80053; 80061; 82306; 84443 ==

== ENCOUNTER 2023-07-13 14:40 | Outpatient (CLI) | payer OTHER, SELFPAY ==
--- NOTE | 2023-07-13 15:00 | CRLHL7_ITS ---
For Patients: As a result of the Century Cures Act, medical imaging exams and procedure reports are released immediately into your electronic medical record. You may view this report before your referring provider. If you have questions, please contact your health care provider. CLINICAL HISTORY: Transient cerebral ischemic attack TECHNIQUE: The carotid circulations and the vertebral arteries in the neck were examined with almonte-scale ultrasound, color-flow and Doppler spectral analysis. Degrees of stenosis were determined using SRU 2002 Consensus Panel Criteria. FINDINGS: Sonographic images demonstrate moderate bilateral atherosclerotic plaque formation without suspicious soft tissue mass. There was antegrade blood flow demonstrated within the vertebral arteries and the subclavian arteries demonstrated a normal triphasic waveform. The spectral Doppler tracings of the common carotid, internal and external carotid arteries demonstrate no abnormal turbulence or spectral broadening. There was no significant elevation of peak systolic blood flow which would indicate a hemodynamically-significant stenosis by SRU criteria. The ICA/CCA peak systolic velocity ratio measures 1.14 on the right and 1.8 on the left. IMPRESSION: Less than 50 percent stenosis of the internal carotid arteries bilaterally. Dictated by Russell Perkins MD @ 07/15/2023 9:04:35 AM (Electronically Signed)
== END 2023-07-13 14:41 | disposition home or self-care (01) ==
LOC: US 14:42
PROVIDERS: PCP Emergency Medicine; Visit Provider Emergency Medicine
DX: G45.9 Transient cerebral ischemic attack, unspecified (principal); I65.23 Occlusion and stenosis of bilateral carotid arteries; I77.9 Disorder of arteries and arterioles, unspecified
CPT/HCPCS: 93880

== ENCOUNTER 2023-11-24 14:00 | Outpatient (CLI) | payer OTHER, SELFPAY | END 2023-11-24 14:01 | disposition home or self-care (01) | PROVIDERS: PCP Emergency Medicine; Visit Provider Emergency Medicine | DX: M81.0 Age-related osteoporosis without current pathological fracture (principal); R35.0 Frequency of micturition | CPT/HCPCS: 82306; 87086 ==

== ENCOUNTER 2024-02-17 13:50 | Outpatient (CLI) | payer OTHER, SELFPAY ==
--- NOTE | 2024-02-17 14:00 | CRLHL7_ITS ---
For Patients: As a result of the Century Cures Act, medical imaging exams and procedure reports are released immediately into your electronic medical record. You may view this report before your referring provider. If you have questions, please contact your health care provider. DXA BONE MINERAL DENSITY STUDY Reason for exam: Osteoporosis. Current height (in): 63. Weight (lb): 140. Menopause age: 46. Ethnicity: White. 1. Have you had a previous hip or vertebral fracture? No. 2. Have you had any fractures during your adult life which did not result from significant trauma (e.g., auto accident)? No. 3. Did either of your parents have a hip fracture? No. 4. Do you smoke? No. 5. Have you ever taken Glucocorticoids? No. 6. Do you have rheumatoid arthritis? No. 7. Do you have secondary osteoporosis? No. 8. Do you drink 3 or more alcoholic drinks per day? No. 9. Are you being treated for osteoporosis? No. 10. Have you ever taken any of the following medications: Actonel, Evista, Fosamax, Miacalcin, Reclast, Boniva, Forteo, HRT (i.e. estrogen/hormone therapy), Protelos, Prolia, Vitamin D, Calcium, other ??? please specify. ANSWER: Yes, vitamin D. 11. Do you have any of the following medical conditions: Anorexia or bulimia, asthma or emphysema, end stage renal disease, hyperparathyroidism, any seizure disorders, cancer, inflammatory bowel diseases, hysterectomy, other ??? please specify. ANSWER: Yes, COPD. 12. What was your maximum height (inches)? 63. 13. Do you perform weight bearing exercise regularly? No. 14. Do you regularly consume dairy products? No. 15. Do you drink caffeinated beverages? Yes. 16. At what age did your period start? 14. 17. Are you premenopausal? No. 18. How many full term pregnancies have you had? 4. 19. Have you ever missed your period for more than 6 months in a row (not including or menopause)? No. TECHNIQUE: Bone mineral density study was performed using the [employer]. FINDINGS: The results of the study expressed as bone mineral density (BMD) are as follows: Lumbar spine L1 to L4: BMD: 0.853 g/cm2. T-score: -1.8. Z-score: 1.1. Neck Left: BMD: 0.696 g/cm2. T-score: -1.4. Z-score: 1.1. Right: BMD: 0.579 g/cm2. T-score: -2.4. Z-score: 0.1. Total Left: BMD: 0.711 g/cm2. T-score: -1.9. Z-score: 0.4. Right: BMD: 0.730 g/cm2. T-score: -1.7. Z-score: 0.6. IMPRESSION: Osteopenia. *Comparison exams done prior to 11/2019 were performed on different unit, Augmentra. COMPARISON: Compared with scan of 11/06/2020, the bone mineral density has increased by 0 percent at the spine and decreased by 1.0 percent at the hip. FRAX 10-year Fracture Risk Major Osteoporotic Fracture: 16 percent Hip Fracture: 5.5 percent Reported Risk Factors: [place] () Neck BMD=0.579, BMI=24.8 Russell Perkins M.D. Diagnostic Radiologist [email or web address] SP/Dictated by: Russell Perkins MD @ 02/18/2024 11:09:00 AM (Electronically Signed)
== END 2024-02-17 13:51 | disposition home or self-care (01) ==
LOC: RAD 13:50
PROVIDERS: PCP Emergency Medicine; Visit Provider Emergency Medicine
DX: M81.0 Age-related osteoporosis without current pathological fracture (principal); M85.89 Other specified disorders of bone density and structure, multiple sites
CPT/HCPCS: 77080

== ENCOUNTER 2024-05-16 14:25 | Outpatient (CLI) | payer OTHER, SELFPAY | END 2024-05-16 14:26 | disposition home or self-care (01) | PROVIDERS: PCP Emergency Medicine; Visit Provider Emergency Medicine | DX: I10 Essential (primary) hypertension (principal); E78.5 Hyperlipidemia, unspecified; R74.01 Elevation of levels of liver transaminase levels; R53.83 Other fatigue; M81.0 Age-related osteoporosis without current pathological fracture; R73.03 Prediabetes | CPT/HCPCS: 80053; 80061; 82306 ==

== ENCOUNTER 2024-06-14 13:35 | Outpatient (CLI) | payer OTHER, SELFPAY ==
--- NOTE | 2024-06-14 14:00 | CRLHL7_ITS ---
For Patients: As a result of the Century Cures Act, medical imaging exams and procedure reports are released immediately into your electronic medical record. You may view this report before your referring provider. If you have questions, please contact your health care provider. INDICATION: Lung cancer screening. Significant smoking history. TECHNIQUE: Low-dose volumetric helical scanning of the thorax was performed without IV contrast material. Coronal and sagittal reconstructions were obtained. COMPARISON: Chest x-ray of 06/03/2022 FINDINGS: A noncalcified 2 mm right upper lobe nodule is demonstrated on image 64 of series 2. several small calcified granulomas are noted. The lungs are clear. Mild bronchial wall thickening is noted. No pleural effusion is demonstrated. There is no mediastinal or hilar lymph adenopathy. A small hiatal hernia is demonstrated. The heart size is normal. Calcified coronary arterial plaque is demonstrated. Images the upper abdomen demonstrate a nonspecific 1.7 cm left adrenal nodule and a left renal collecting system stone. IMPRESSION: 1. Negative for the purpose of lung cancer screening. Lung-RADS CATEGORY 2: BENIGN APPEARANCE OR BEHAVIOR: Continue annual screening with low-dose chest CT in 12 months. 2. Mild bronchial wall thickening. 3. Small hiatal hernia. 4. Nonspecific 1.7 cm left adrenal nodule. Comparison with any previous exam recommended. Otherwise, as clinically appropriate, CT scan utilizing an adrenal adenoma protocol recommended. 5. Left renal collecting system stone. Please note that all CT scans at this facility use dose modulation, iterative reconstruction, and/or weight-based dosing when appropriate to reduce radiation dose to as low as reasonably achievable. Dictated by Mandeep Watts MD @ 06/15/2024 2:56:47 PM (Electronically Signed)
== END 2024-06-14 13:36 | disposition home or self-care (01) ==
LOC: CT 13:37
PROVIDERS: PCP Emergency Medicine; Visit Provider Emergency Medicine
DX: Z12.2 Encounter for screening for malignant neoplasm of respiratory organs (principal); K44.9 Diaphragmatic hernia without obstruction or gangrene; E27.9 Disorder of adrenal gland, unspecified; N20.0 Calculus of kidney; Z87.891 Personal history of nicotine dependence
CPT/HCPCS: 71271

== ENCOUNTER 2025-02-01 11:36 | Emergency (ER) | payer OTHER, SELFPAY ==
[2025-02-01] VITALS (13 sets, daily range): BP systolic 129–168; BP diastolic 71–97; PULSE 73–89; RESP 11–26; TEMP 36.4; O2SAT 88–100
--- NOTE | 2025-02-01 11:42 | ED_ITS ---
HPI - General Adult General Date Seen: 02/01/25 Chief complaint: Shortness of Breath/Dyspnea Stated complaint: trouble breathing, dehydrated Time Seen by Provider: 02/01/25 11:39 History of Present Illness HPI narrative: 89-year-old female with a past medical history COPD, hypertension TIA, vertebral artery stenosis, carotid artery stenosis (on Plavix), hyperlipidemia. Per medical record she was seen in clinic/urgent care 2 days ago on 01/30. Per that note... Had had cold for 4 days with headache and body aches, nasal congestion, productive cough. Also sharp left-sided chest pain and abdominal discomfort. No fever or chills. Using an albuterol inhaler as needed. Also per record, he tolerated She had had a COPD exacerbation last spring treated with prednisone and doxycycline and got better... She was treated in clinic with albuterol, and given prescriptions for prednisone 40 mg daily for 5 days, doxycycline 100 mg p.o. b.i.d. for 5 days.. She was seen again in urgent care this morning. Per that note.... Oxygen saturation had been 942 days ago was down to 91 today. Respiratory rate was faster this morning. It was 30 breaths per minute. Two days ago her breast rate was 22 . Blood pressure was low in the Urgent Care with a systolic blood pressure in the 80s. Upon presentation to the ER she actually says she is feeling better. Blood pressure is now up to 129 systolic. Respiratory rate is down to the mid 20s. History is obtained today apart from the patient and apart from her daughters. She has been sick since Wednesday but in particular has had up coughing and shortness of breath since Wednesday. Also since Wednesday has had some abdominal pain and diarrhea that is typically triggered after eating. Daughters note that she is eating less than normal but the patient thinks she is eating enough. She has been trying to drink fluids. She did have some chicken soup yesterday. Her daughters note that she has been taking the steroids and antibiotics but just isn't feeling any better. They also note that she was just moaning all night long. She is having pain in her left upper quadrant/left lower chest. Her cough is largely nonproductive save for a little bit of sputum 2 days ago. No fevers. No known sick exposures. Her diarrhea is liquid, not bloody. Urination is normal. No swelling in her legs. Related Data Home Medications ?Medication ?Instructions ?Recorded ?Confirmed cholecalciferol (vitamin D3) 25 1,000 unit PO DAILY 02/01/25 mcg (1,000 unit) tablet amlodipine 5 mg tablet 5 mg PO QDAY PRN 06/03/22 ondansetron HCl 4 mg tablet 4 mg PO Q8H 10/18/2302/01 citracal Not Applicable 05/16/2401/06 Previous Rx's ?Medication ?Instructions ?Recorded albuterol sulfate 2.5 mg/3 mL 2.5 mg (3 mL) inhalation Q4H PRN 03/20/24 (0.083 %) solution for nebulization shortness of breat h or wheezing #75 mL albuterol sulfate 90 mcg/actuation 2 puff inhalation Q 4H PRN 03/20/24 aerosol inhaler shortness of breath or wheez ing #8.5 grams tiotropium bromide 2.5 2 puff inhalation DAILY #4 g karsten 05/15/24 mcg/actuation mist for inhalation escitalopram oxalate 20 mg tablet 20 mg PO DAILY #90 t abs 05/16/24 clopidogrel 75 mg tablet (Plavix) 75 mg PO QDAY #90 ta bs 06/12/24 rosuvastatin 5 mg tablet 5 mg PO DAILY #90 tabs 09/11 lorazepam 0.5 mg tablet 0.25 - 0.5 mg (0.5 - 1 x 0.5 mg) 11/08/24 PO QDAY PRN anxiety #15 tabs doxycycline hyclate 100 mg capsule 100 mg PO BID 5 day s #10 caps 01/30/25 prednisone 20 mg tablet 40 mg (2 x 20 mg) PO QDAY 5 days 01/30/25 #10 tabs hydrocodone 5 mg-acetaminophen 325 1 tab PO Q6H PRN pa in #10 tabs 02/01/25 mg tablet ondansetron 4 mg disintegrating 4 mg PO Q8H PRN nausea and 02/01/25 tablet vomiting #10 tabs Allergies Allergy/AdvReac Type Severity Reaction Status Date / Time codeine Allergy Intermediate Syncope Verified 02/01/25 15:14 bupropion (From Wellbutrin) Allergy Mild Dizziness Verified 02/01/25 15:14 ciprofloxacin Allergy Mild Rash Verified 02/01/25 15:14 Fish Containing Products Allergy Mild Hives Verified 02/01/25 15:14 umeclidinium (From Anoro Allergy Mild Rash Verified 02/01/25 15:14 Ellipta) vilanterol (From Anoro Allergy Mild Rash Verified 02/01/25 15:14 Ellipta) [facility] Medical History Lesion of adrenal gland ?E27.9 - Disorder of adrenal gland, unspecified (ICD-10) Hyperlipidemia ?E78.5 - Hyperlipidemia, unspecified (ICD-10) Screening for hyperlipidemia ?Z13.220 - Encounter for screening for lipoid disorders (ICD-10) Encounter for preventive care ?Z00.00 - Encounter for general adult medical examination without abnormal findings (ICD-10) UTI (urinary tract infection) ?N39.0 - Urinary tract infection, site not specified (ICD-10) History of benign adrenal tumor ?Z86.018 - Personal history of other benign neoplasm (ICD-10) Urinary frequency ?R35.0 - Frequency of micturition (ICD-10) COPD exacerbation ?J44.1 - Chronic obstructive pulmonary disease with (acute) exacerbation (ICD-10) Pre-diabetes ?R73.03 - Prediabetes (ICD-10) Normal nuclear stress test Fatigue ?R53.83 - Other fatigue (ICD-10) Right hip pain ?M25.551 - Pain in right hip (ICD-10) Elevated transaminase level ?R74.01 - Elevation of levels of liver transaminase levels (ICD-10) Screening for lung cancer ?Z12.2 - Encounter for screening for malignant neoplasm of respiratory organs (ICD-10) Back pain ?M54.9 - Dorsalgia, unspecified (ICD-10) Hearing loss ?H91.90 - Unspecified hearing loss, unspecified ear (ICD-10) Osteoporosis ?M81.0 - Age-related osteoporosis without current pathological fracture (ICD- 10) Depression ?F32.A - Depression, unspecified (ICD-10) HTN (hypertension) ?I10 - Essential (primary) hypertension (ICD-10) Health care directive on file ?Z78.9 - Other specified health status (ICD-10) Screening for breast cancer ?Z12.39 - Encounter for other screening for malignant neoplasm of breast (ICD-10) Anxiety ?F41.9 - Anxiety disorder, unspecified (ICD-10) Vertebral artery stenosis ?I65.09 - Occlusion and stenosis of unspecified vertebral artery (ICD-10) Carotid arterial disease ?I77.9 - Disorder of arteries and arterioles, unspecified (ICD-10) TIA (transient ischemic attack) ?G45.9 - Transient cerebral ischemic attack, unspecified (ICD-10) On clopidogrel therapy ?Z79.01 - intermediate accountant (current) use of anticoagulants (ICD-10) History of vitamin D deficiency ?Z86.39 - Personal history of other endocrine, nutritional and metabolic disease (ICD-10) COPD (chronic obstructive pulmonary disease) ?J44.9 - Chronic obstructive pulmonary disease, unspecified (ICD-10) Surgical History Status post total abdominal hysterectomy ?Z90.710 - Acquired absence of both cervix and uterus (ICD-10) History of tonsillectomy and adenoidectomy ?Z90.89 - Acquired absence of other organs (ICD-10) History of ptosis repair (02/2018) ?Z98.890 - Other specified postprocedural states (ICD-10) History of carpal tunnel surgery of left wrist ?Z98.890 - Other specified postprocedural states (ICD-10) History of arthroscopic knee surgery ?Z98.890 - Other specified postprocedural states (ICD-10) History of nephrectomy ?Z90.5 - Acquired absence of kidney (ICD-10) History of appendectomy ?Z90.49 - Acquired absence of other specified parts of digestive tract (ICD- 10) Family History Mother Alzheimers disease Social History Narrative: Former smoker- age [age] x 1ppd Smoking Status: Former smoker What tobacco products do you use: cigarettes Smoking quit date/years: >15 years ago Do you use any of these nicotine containing products: None Second hand tobacco smoke exposure: No How often do you have a drink containing alcohol: never How often do you have six or more drinks on one occasion: Never AUDIT-C Alcohol total score: 0 Non-prescribed substance use: denies use service: No Exam Narrative: Exam Narrative: Constitutional: Appears well-developed and well-nourished. Alert. Hard of hearing but answers questions and follows commands cooperative Heavenly. Mildly tachypneic., but not tripoding or showing signs of respiratory fatigue. HENT: Head: Atraumatic. Nose: Nose normal. Mouth/Throat: Oral mucosa is clear and moist. no trismus. Wearing mask during our encounter. Denies sore throat, so deferred pharyngeal exam. Eyes: Conjunctivae normal. EOM normal. Pupils equal, round, and reactive to light. No scleral icterus. Neck: Normal range of motion. Neck supple. No tracheal deviation present. Cardiovascular: Normal rate, regular rhythm. No gallop. No friction rub. No murmur heard. Symmetric radial and PT artery pulses Pulmonary/Chest: Effort normal. No stridor. No respiratory distress. Bibasilar wheezes. Apices fairly clear. No rales. No rhonchi . No tenderness. Abdominal: Soft. Bowel sounds normal. No distension. No mass. Left upper quad> right upper quadrant tenderness. No rebound. No guarding. No CVA tenderness Musculoskeletal: RUE: Normal range of motion. No tenderness. No deformity LUE: Normal range of motion. No tenderness. No deformity RLE: Normal range of motion. No edema. No tenderness. No deformity LLE: Normal range of motion. No edema. No tenderness. No deformity Neurological: Alert and oriented to person, place, and time. Normal strength. CN II-VII intact. No sensory deficit. GCS eye subscore is 4. GCS verbal subscore is 5. GCS motor subscore is 6. Normal coordination Skin: Skin is warm and dry. No rash noted. No pallor. Normal capillary refill. Psychiatric: Normal mood. Normal affect. Const: Vital Signs, click to edit/add: Vital Signs - 24 hr 02/01/25 11:52 02/01/25 11:53 02/01/25 11:55 Temperature 97.6 F Pulse Rate 82 79 Pulse Rate [Pulse Oximeter] 77 Respiratory Rate 19 26 H Blood Pressure 148/97 H Blood Pressure [Ri ght Upper Arm] 148/97 H Pulse Oximetry 94 96 95 Oxygen Delivery Me thod Room Air 02/01/25 12:00 02/01/25 12:01 02/01/25 12:15 Temperature Pulse Rate 75 73 76 Pulse Rate [Pulse Oximeter] Respiratory Rate 14 11 L 12 Blood Pressure 129/71 Blood Pressure [Ri ght Upper Arm] Pulse Oximetry 97 97 96 Oxygen Delivery Me thod 02/01/25 12:45 02/01/25 13:00 02/01/25 13:05 Temperature Pulse Rate 79 85 85 Pulse Rate [Pulse Oximeter] Respiratory Rate 19 17 Blood Pressure Blood Pressure [Ri ght Upper Arm] Pulse Oximetry 100 96 94 Oxygen Delivery Me thod 02/01/25 13:15 02/01/25 13:30 02/01/25 13:34 Temperature Pulse Rate 85 89 87 Pulse Rate [Pulse Oximeter] Respiratory Rate 12 14 Blood Pressure Blood Pressure [Ri ght Upper Arm] Pulse Oximetry 93 88 93 Oxygen Delivery Me thod 02/01/25 13:38 Temperature Pulse Rate 88 Pulse Rate [Pulse Oximeter] Respiratory Rate 14 Blood Pressure 168/90 H Blood Pressure [Ri ght Upper Arm] Pulse Oximetry 94 Oxygen Delivery Me thod Course Course ED Course: Recheck-after DuoNeb lung sounds slightly improved but still wheezy. Reevaluation(s) Reevaluation #1: Recheck after 2nd DuoNeb lung sounds improved. Patient notes definitely that she is not having as much pain in her left lower chest when she breathes. Discussed CT findings with the patient (who is hard of hearing) and her daughters. Discussed plan of care. Patient is strongly wants to go home. The at this point I think that is agrees able since her vital signs have been stable normal since she has arrived here in the ER and her the [facility] workup is reassuring Vital Signs Vital signs: Initial Vital Signs Pulse Rate 82 02/01/25 11:52 Blood Pressure 148/97 H 02/01/25 11:52 Blood Pressure Mean 114 H 02/01/25 11:52 Pulse Oximetry 94 02/01/25 11:52 Vital Signs Pulse Rate 82 02/01/25 11:52 Blood Pressure 148/97 H 02/01/25 11:52 Pulse Oximetry 94 02/01/25 11:52 Temperature 97.6 F 02/01/25 11:55 Pulse Rate 88 02/01/25 13:38 Respiratory Rate 14 02/01/25 13:38 Blood Pressure 168/90 H 02/01/25 13:38 Pulse Oximetry 94 02/01/25 13:38 Oxygen Delivery Method Room Air 02/01/25 11:55 Medications Administered Medications: Discontinued Medications Generic Name Dose Route Start Last Admin Trade Name Jose Carlos PRN Reason Stop Dose Admin Albuterol/Ipratropium 1 neb 02/01/25 12:15 02/01/25 12:30 Iprat-Albut 0.5-2.5 Mg/3 Ml Neb 02/01/25 12:16 1 neb ONCE ONE Administration Albuterol/Ipratropium 1 neb 02/01/25 14:30 02/01/25 14:48 Iprat-Albut 0.5-2.5 Mg/3 Ml Neb 02/01/25 14:31 1 neb ONCE ONE Administration Sodium Chloride 1,000 mls @ 1,000 mls/hr 02/01/25 12:15 02/01/25 13:40 0.9 % Sodium Chloride 1000 Ml IV 02/01/25 13:14 Infused .Q1H RIGO Infusion Medical Decision Making [facility] Narrative Medical decision making narrative: This patient presents for evaluation of shortness of breath and wheezing the as well as some left lower chest pain. She was sent from the urgent care today because they felt she was hypotensive. He reported a systolic blood pressure of 80 in urgent care. However all of her blood pressure readings here in the ER been normal. Unclear if she was truly hypotensive temporarily the urgent care that was a peroneus reading. Chest x-ray and chest CT are negative for any focal pneumonia. COVID/influenza PCR negative. She is having some pleuritic left lower rib pain. No evidence for PE on CT scan. No evidence for pleural effusion or left lower lobe infiltrate. Suspect this may be musculoskeletal or pleurisy. EKG nonischemic. Troponin undetectable. Laboratory workup shows a mild leukocytosis of white count of 11 which could be related to infection or potentially could be related to her current steroids.. Signs and symptoms are consistent with COPD exacerbation. A broad differential was considered including asthma, pneumonia, bronchitis, pneumothorax, viral induced wheezing, allergic phenomena, among others. There are no signs at this point of any serious etiologies including those mentioned above. The patient feels and sounds improved after interventions here in ED. No indication for hospitalization at this time including no hypoxia, no marked increase in respiratory rate, and there are minimal to no retractions. She already has doxycycline, prednisone, albuterol nebulizer and adequate treatments for at home. Will add a prescription for some Haines that she can use of her chest is bothering her at night so she can sleep. Opiate precautions and a risk for confusion and delirium discussed. Also Zofran for supportive care. Precautions for immediate return to the ER reviewed. Questions answered. Also discussed incidental findings of her coronary artery disease noted on CT and her left kidney. Cyst versus mass. This kidney cyst versus mass was previously known to the patient and her daughter and they will follow-up with PCP for surveillance. Lab Data Labs: Lab Results 02/01/25 02/01/25 Range/Units 12:25 12:30 WBC 11.08 H (4.50-11.00) K/uL RBC 4.59 (4.00-5.20) m/uL Hgb 13.5 (12.0-16.0) gm/dL Hct 41.8 (33.0-51.0) % MCV 91 (80-100) fL MCH 29 (26-34) pg MCHC 32 (32-36) gm/dL RDW Coeff of Lisbet 13.2 (11.5-15.5) % Plt Count 399 (140-440) K/uL Neut % (Auto) 82.3 H (42.0-72.0) % Lymph % (Auto) 11.6 L (20-44) % Sabine % (Auto) 4.6 (0.0-11.0) % Eos % (Auto) 0.7 (0.0-7.0) % Baso % (Auto) 0.5 (0.0-3.0) % Neut # (Auto) 9.10 H (1.7-7.0) K/uL Lymph # (Auto) 1.30 (0.90-2.90) K/uL Sabine # (Auto) 0.50 (0.00-0.90) K/UL Eos # (Auto) 0.10 (0.00-0.50) K/uL Baso # (Auto) 0.10 (0.00-0.30) K/uL Abs Immat Gran (auto) 0.00 (0.00-0.30) K/uL Imm/Tot Granulo (auto) 0.3 % Sodium 139 (135-149) mmol/L Potassium 4.2 (3.6-5.1) mmol/L Chloride 107 (96-114) mmol/L Carbon Dioxide 26 (20-32) mmol/L Anion Gap 6 L (7-15) mEq/L BUN 19 (7-30) mg/dL Creatinine 0.8 (0.5-1.5) mg/dL Estimated GFR 70 ml/min Glucose 103 (60-115) mg/dL Lactate 1.6 (0.5-1.9) mmol/L Calcium 9.2 (8.4-10.6) mg/dL Troponin I < 0.01 (0.01-0.04) ng/mL Lipase 132 (23-300) U/L SARS-CoV-2 (PCR) Negative SARS-CoV-2 (Negative) Influenza Type A (PCR) Negative PCR FLU A (Negative) Influenza Type B (PCR) Negative PCR FLU B (Negative) Imaging Data Chest x-ray: Attestation: I have reviewed the pertinent imaging results. My impression: no acute infiltrate Radiologist's impression: IMPRESSION: No evidence of an acute pulmonary process. CT chest: Attestation: I have reviewed the pertinent imaging results. Radiologist's impression: IMPRESSION: 1. No evidence of pulmonary embolus. 2. Bilateral bronchial wall thickening with areas of discoid atelectasis which can be seen in bronchitis. 3. Centrilobular emphysema. 4. Severe coronary atherosclerosis. 5. Nephrolithiasis with indeterminate hyperdense left renal lesion measuring 1.5 centimeters. Differential diagnosis includes hyperdense cyst or solid lesion. Suggest outpatient renal MR for further characterization. ECG Data Interpretation: Normal sinus rhythm with occasional PVCs and PACs Rate 78 PA interval [address] Left axis deviation. No ST segment elevation or depression. Some tremor artifact in the baseline could limit sensitivity for subtle changes. QT 408, QTC 465 Discharge Plan Discharge Clinical Impression: Acute exacerbation of chronic obstructive pulmonary disease, Chest pain, Coronary artery disease, Left renal mass Patient Disposition: Home, Self-Care Condition: Stable Instructions: Chest Pain (DC), COPD (Chronic Obstructive Pulmonary Disease) (DC) Additional Instructions: As we discussed, please come back to the ER right away if you have worsening symptoms such as trouble breathing, vomiting, weakness, or chest pain, or if you have any other problems. Please continue on your prednisone and doxycycline. Use your nebulizer every 4 hours as needed. If her having worsening shortness of breath or cough that is not well controlled by your nebulizer, or if you need to use it more often than every 4 hours, please come back to the ER right away. We suspect that the pain your having in her left lower ribs is probably pleurisy or a pulled muscle from coughing. You can treat this with Tylenol. If you need stronger pain medication to use Haines if needed. Be careful with Haines because it can cause dizziness, drowsiness, constipation, confusion, and can be addictive. please recheck with your regular doctor within 1 week. You can also ask your regular doctor to recheck your left kidney cyst (seen incidentally on the CT scan of your lungs today). Also have your doctor double check your blood pressure and cholesterol medications to make sure you minimize your risk for developing worsening coronary artery disease. Prescriptions: New hydrocodone-acetaminophen 5-325 mg tablet 1 tab PO Q6H PRN (Reason: pain) Qty: 10 0RF ondansetron 4 mg tablet,disintegrating 4 mg PO Q8H PRN (Reason: nausea and vomiting) Qty: 10 0RF No Action escitalopram oxalate 20 mg tablet 20 mg PO DAILY Qty: 90 3RF citracal Not Applicable Rx Instructions: take 2,000 units daily cholecalciferol (vitamin D3) 25 mcg (1,000 unit) tablet 1,000 unit PO DAILY amlodipine 5 mg tablet 5 mg PO QDAY PRN Rx Instructions: one tablet a day as needed for headaches from blood pressure ondansetron HCl 4 mg tablet 4 mg PO Q8H doxycycline hyclate 100 mg capsule 100 mg PO BID 5 Days Qty: 10 0RF prednisone 20 mg tablet 40 mg PO QDAY 5 Days Qty: 10 0RF albuterol sulfate 90 mcg/actuation HFA aerosol inhaler 2 puff INHALATION Q4H PRN (Reason: shortness of breath or wheezing) Qty: 8.5 8RF Patient Comments: inhaler 2 puffs by mouth every 4 hours as needed albuterol sulfate 2.5 mg /3 mL (0.083 %) solution for nebulization 2.5 mg inhalation Q4H PRN (Reason: shortness of breath or wheezing) Qty: 75 3RF tiotropium bromide 2.5 mcg/actuation mist 2 puff inhalation DAILY Qty: 4 2RF clopidogrel [Plavix] 75 mg tablet 75 mg PO QDAY Qty: 90 3RF rosuvastatin 5 mg tablet 5 mg PO DAILY Qty: 90 1RF lorazepam 0.5 mg tablet 0.25 - 0.5 mg PO QDAY PRN (Reason: anxiety) Qty: 15 0RF Rx Instructions: take 1/2 hour before outing activity Follow Up/Referrals: Cindy Meadows MD [Primary Care Provider, Family Practice] Stand Alone [facility]
--- NOTE | 2025-02-01 12:15 | CRLHL7_ITS ---
For Patients: As a result of the Century Cures Act, medical imaging exams and procedure reports are released immediately into your electronic medical record. You may view this report before your referring provider. If you have questions, please contact your health care provider. INDICATION: Cough, shortness of breath. TECHNIQUE: Chest 2 views. COMPARISON: 06/03/2022. FINDINGS: Cardiovascular and mediastinum: Heart size and vasculature are normal in caliber and appearance. Lungs and pleural spaces: No focal consolidation, pleural effusion, or pneumothorax. Bones and soft tissues: Unremarkable for age. IMPRESSION: No evidence of an acute pulmonary process. Dictated by Johnathon Clement MD @ 02/01/2025 12:41:31 PM (Electronically Signed)
[2025-02-01 12:29] LABS: Lactate* 1.6 mmol/L (0.5-1.9)
[2025-02-01] MEDS: IPRAT-ALBUT 0.5-2.5 MG/3 ML NEB 1 NEB IH ×2 (12:30→14:48)
[2025-02-01 12:31] LABS: Hematocrit 41.8 % (33.0-51.0); Hemoglobin* 13.5 gm/dL (12.0-16.0); Immature Granulocytes Pct Auto 0.3 %; Mean Corpuscular HGB Conc 32 gm/dL (32-36); Mean Corpuscular Hemoglobin 29 pg (26-34); Mean Corpuscular Volume 91 fL (80-100); RDW Coefficient of Variation % 13.2 % (11.5-15.5); Red Blood Count 4.59 m/uL (4.00-5.20); White Blood Count* 11.08 K/uL (4.50-11.00)
[2025-02-01 12:42] LABS: Immature Granulocytes Abs Auto 0.00 K/uL (0.00-0.30); Lymphocytes Absolute Auto 1.30 K/uL (0.90-2.90); Slide Review Reflex No
[2025-02-01 13:20] LABS: PCR FLU A Negative PCR FLU A (Negative); PCR FLU B Negative PCR FLU B (Negative); SARS PCR* Negative SARS-CoV-2 (Negative)
[2025-02-01 13:57] LABS: Chloride* 107 mmol/L (96-114); Potassium* 4.2 mmol/L (3.6-5.1); Sodium* 139 mmol/L (135-149)
[2025-02-01 14:00] LABS: Anion Gap 6 mEq/L (7-15); Blood Urea Nitrogen* 19 mg/dL (7-30); Calcium* 9.2 mg/dL (8.4-10.6); Carbon Dioxide* 26 mmol/L (20-32); Creatinine* 0.8 mg/dL (0.5-1.5); Estimated Glomerular Filt Rate 70 ml/min; Glucose* 103 mg/dL (60-115)
--- NOTE | 2025-02-01 14:29 | CRLHL7_ITS ---
For Patients: As a result of the Century Cures Act, medical imaging exams and procedure reports are released immediately into your electronic medical record. You may view this report before your referring provider. If you have questions, please contact your health care provider. INDICATION: Dyspnea and left lower chest pain TECHNIQUE: CT chest PE was acquired with 95 cc Isovue 370 IV contrast. Axial maximum intensity projection reformatted images were performed on the scanner. COMPARISON: Chest CT 06/14/2024 FINDINGS: Heart and vasculature: Contrast opacification of the pulmonary arterial tree is adequate. No sign of pulmonary embolism. No pericardial effusion. Severe coronary atherosclerosis. Mild aortic tortuosity. Atherosclerosis. Lungs and pleura: No pleural effusion or pneumothorax. Underlying centrilobular emphysema. Calcified granulomata. Scattered areas of discoid atelectasis lung bases with some bronchial wall thickening noted, best appreciated in the right lower lobe. Lymph nodes/mediastinum: Subcentimeter mediastinal lymph nodes. Chest wall: No masses. Upper abdomen: Right kidney not seen suggesting prior nephrectomy. Hyperdense left renal lesion seen measuring 1.5 centimeters. Nephrolithiasis. Subcentimeter hypodense lesions which are too small for characterization. Mild left pelviectasis. Bones: Degenerative disc disease thoracic spine. IMPRESSION: 1. No evidence of pulmonary embolus. 2. Bilateral bronchial wall thickening with areas of discoid atelectasis which can be seen in bronchitis. 3. Centrilobular emphysema. 4. Severe coronary atherosclerosis. 5. Nephrolithiasis with indeterminate hyperdense left renal lesion measuring 1.5 centimeters. Differential diagnosis includes hyperdense cyst or solid lesion. Suggest outpatient renal MR for further characterization. Please note that all CT scans at this facility use dose modulation, iterative reconstruction, and/or weight-based dosing when appropriate to reduce radiation dose to as low as reasonably achievable. Dictated by Manish Dennis MD @ 02/01/2025 3:30:54 PM (Electronically Signed)
== END 2025-02-01 16:09 | disposition home or self-care (01) ==
PROVIDERS: Emergency Provider Emergency Medicine; PCP Emergency Medicine
DX: J44.1 Chronic obstructive pulmonary disease with (acute) exacerbation (principal); I25.10 Atherosclerotic heart disease of native coronary artery without angina pectoris; N28.89 Other specified disorders of kidney and ureter; Z87.891 Personal history of nicotine dependence
CPT/HCPCS: 36415; 71046; 71275; 80048; 83605; 83690; 84484; 85025; 87040; 87631; 93005; 96374; 99284; 99285; J7030; Q9967